=== PATIENT | male | born 1950 | race Caucasian/White ===

== ENCOUNTER → 2024-05-16 | Outpatient (CLI) | payer MEDICARE | END | disposition home or self-care (01) | LOC: MRI 15:01 | PROVIDERS: ATTEND Orthopaedic Surgery | DX: S46.011A Strain of muscle(s) and tendon(s) of the rotator cuff of right shoulder, initial encounter (principal); M77.8 Other enthesopathies, not elsewhere classified; M19.011 Primary osteoarthritis, right shoulder; M25.511 Pain in right shoulder; X58.XXXA Exposure to other specified factors, initial encounter; Y93.89 Activity, other specified; Y92.89 Other specified places as the place of occurrence of the external cause; Y99.8 Other external cause status | CPT/HCPCS: 73221 ==

== ENCOUNTER 2024-06-29 08:32 | Outpatient (CLI) | payer MEDICARE | END 2024-06-29 23:59 | disposition home or self-care (01) | LOC: RAD 08:32 | PROVIDERS: ATTEND Surgery | DX: K40.90 Unilateral inguinal hernia, without obstruction or gangrene, not specified as recurrent (principal) | CPT/HCPCS: 76705 ==